=== PATIENT | male | born 1985 | race Caucasian/White ===

== ENCOUNTER 2023-08-23 07:40 | Outpatient (CLI) | payer BC | END 2023-08-23 07:41 | disposition home or self-care (01) | LOC: CSHULT 07:40 | PROVIDERS: ATTEND Urology | DX: N39.43 Post-void dribbling (principal); N40.1 Benign prostatic hyperplasia with lower urinary tract symptoms; R35.0 Frequency of micturition; R39.13 Splitting of urinary stream; N13.30 Unspecified hydronephrosis; N28.9 Disorder of kidney and ureter, unspecified | CPT/HCPCS: 76770 ==

== ENCOUNTER 2023-08-25 07:06 | Outpatient (CLI) | payer BC ==
[2023-08-25] MEDS ORDERED: Iopamidol 300 61% 100 ML VIAL FS ONE (11:56)
== END 2023-08-25 07:07 | disposition home or self-care (01) ==
LOC: CSHCT 07:06
PROVIDERS: ATTEND Urology
DX: N13.30 Unspecified hydronephrosis (principal)
CPT/HCPCS: 74178